=== PATIENT | female | born 1960 | race Caucasian/White ===

== ENCOUNTER → 2021-09-17 07:03 | Outpatient (CLI) | payer BC, SELFPAY ==
--- NOTE | ~2021-09-17 | MR_ITS ---
EXAMINATION: MR knee LT wo con DATE: 09/17/2021 07:39 INDICATION: Chronic left knee pain TECHNIQUE: Magnetic resonance imaging (MRI) of the left knee was performed without intravenous contra st. Sequences included coronal PD-weighted FSE, coronal PD-weighted FS FSE, sagittal T2-weighted FSE , sagittal PD-weighted FS FSE and axial PD weighted fat saturated FSE. COMPARISON: None. FINDINGS: Medial compartment: Complex tear of the medial meniscal body which includes a full-thickness radial component with approx imately 6 mm separation of the posterior margins as well as a longitudinal horizontal component exten ding into the anterior horn. There is a fracture extending to 0.3 cm AP and 9 mm medial collateral al sharon the medial aspect of the medial tibial plateau. The unstable fracture fragment is minimally depre ssed with approximately 1 mm step-off along the articular surface. There is chondral fissuring along the articular surface of the fracture fragment. There is partial thickness cartilage loss involving g reater than 50% the cartilage thickness along the central aspect of the medial tibial plateau beneath which there is an additional linear nondisplaced fracture line at this fracture line appears incompl ete medially and does not extend cephalad to involve the more medial articular sided cortex. There is additional deep chondral ulceration along the anterior to central weightbearing medial femoral condy le. Lateral compartment: Lateral meniscus is normal. There is heterogeneous cartilage signal and surface regularity suggesting partial thickness fissuring at the central aspect of the lateral tibial plateau and along the anteri or weightbearing lateral femoral condyle. Patellofemoral compartment: Additional partial thickness chondral fissuring throughout the patella most severe at the inferior as pect of the apical ridge where there is a full/near full-thickness fissure. Partial-thickness chondra l ulceration along the medial trochlea and trochlear groove with small central subchondral osteophyte s at the inferior aspect of the medial trochlea. Ligaments and tendons: Anterior and posterior cruciate ligaments are normal. Mild thickening and mild increased signal at th e proximal aspect of medial collateral ligament without surrounding edema consistent with mild scarri ng related to chronic sprain. The fibular collateral ligament complex is normal. The extensor mechani sm is normal. The visualized medial and lateral hamstring tendons as well as the iliotibial band are normal. Fluid: Small joint effusion and mild synovitis at the suprapatellar pouch. Additional mild synovitis at a sm all Valdez's cyst. Osseous/other: Prominent marrow edema centered on the previous noted medial tibial plateau fracture. In addition the re is red marrow reexpansion in the distal femoral metadiaphyseal region. Small low signal intensity bone island near the trochlear groove. No other pathologic marrow replacing process. There is feather y edema in the popliteus muscle which in the acute setting could be related to muscle strain although is more likely reactive related to the previous noted fracture. IMPRESSION: 1. Complex medial meniscal tear. 2. Medial tibial plateau fracture with minimal depression of a 2.2 x 0.9 cm unstable fragment compris ing the medial side of the medial tibial plateau and additional is nondisplaced and likely incomplete subarticular fracture underlying the central aspect of the medial tibial plateau. 3. Tricompartmental osteoarthritis, moderate severity in the medial compartment and mild with high-gr rocio chondromalacia in the patellofemoral compartment and moderate grade chondromalacia in the lateral compartment. 4. Mild scarring at the proximal medial collateral ligament likely sequela of chronic sprain. 5. Small left knee joint effusion and small Valdez's cyst. 6. Possible
== END ==
PROVIDERS: Visit Provider Orthopaedic Surgery
DX: S83.242A Other tear of medial meniscus, current injury, left knee, initial encounter (principal); X58.XXXA Exposure to other specified factors, initial encounter; M17.12 Unilateral primary osteoarthritis, left knee; M25.462 Effusion, left knee; M71.22 Synovial cyst of popliteal space [Baker], left knee
CPT/HCPCS: 73721